=== PATIENT | male | born 1940 | race Caucasian/White ===

== ENCOUNTER 2017-12-27 13:32 | Day surgery (SDC) | payer BC ==
[2017-12-27 14:00] VITALS: BP 94/60; PULSE 122; RESP 18
[2017-12-27] MEDS ORDERED: LIDOCAINE 2% INJ 20 MG/ML SQ ONE (14:17)
--- NOTE | 2017-12-27 14:40 | IR ---
PICC LINE PLACEMENT: HISTORY: Infection requiring long-term antibiotic therapy PROCEDURE: Ultrasound and fluoroscopic guidance of PICC line placement. COMPLICATIONS: None ANESTHESIA: 1. 1% Lidocaine locally. FINDINGS/TECHNIQUE: The procedure was explained to the patient. The risks, complications, benefits and alternatives were discussed and any questions were answered. Informed consent was obtained. The patient was placed supine on the fluoroscopic table and prepped and draped in the usual sterile fas ion. Utilizing a 21 gauge needle and sonographic and fluoroscopic guidance, access in the vein was achieved and there is placement of a 0.018 guidewire. The vein is patent. A 4-F sheath was placed o pastora the guidewire. The guidewire and dilator were removed and a 4-F. PICC line was placed through th e sheath with the tip at the level of the SVC. The sheath was removed, the catheter was flushed and sutured into position. The patient was stable throughout the procedure and remained stable upon disc harge from the Department of Radiology. The vein puncture was patent under ultrasound. A thrasher scale image was obtained to document patency of the vein punctured. All elements of the maximal barrier technique were utilized. FLUOROSCOPY TIME: 0.3 minutes of fluoroscopy, one image submitted IMPRESSION: Successful PICC line placement under ultrasound and fluoroscopic guidance.
== END 2017-12-27 14:48 | disposition home or self-care (01) ==
LOC: CATHCVL 13:32
PROVIDERS: ATTEND Radiology Diagnostic Radiology
DX: M00.031 Staphylococcal arthritis, right wrist (principal); B95.8 Unspecified staphylococcus as the cause of diseases classified elsewhere; M35.9 Systemic involvement of connective tissue, unspecified; I48.91 Unspecified atrial fibrillation; Z79.01 Long term (current) use of anticoagulants; Z86.73 Personal history of transient ischemic attack (TIA), and cerebral infarction without residual deficits; Z79.899 Other long term (current) drug therapy; Z79.2 Long term (current) use of antibiotics; Z88.0 Allergy status to penicillin
CPT/HCPCS: 36569; 76937; 77001; C1751; C1769; J2001

== ENCOUNTER → 2018-01-01 | Outpatient (CLI) | payer BC ==
--- NOTE | 2018-01-02 21:16 | MR ---
EXAMINATION TYPE: MR cervical spine wo con DATE OF EXAM: 01/01/2018 COMPARISON: NONE HISTORY: myelopathy, unsteady, falls TECHNIQUE: Multiplanar, multisequence images of the cervical spine were acquired. 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 There is posterior displacement and posterior angulation of the superior odontoid from the body of C2. Fracture was previously identified CT 016. There is been some exaggeration of the cervical lordosis from the previous CT of 10/12/2015. Diffuse n arrowing through the cervical spine is present. Axial images through the lower cervical spine are severely angulated and somewhat limited. C2-C3: Minimal broad-based disc bulge is present with anterior thecal sac contact. No AP spinal canal stenosis present. Neural foramen are patent. C3-C4: Mild central bulge is present. No cord contact is evident. No AP spinal canal stenosis present . Moderate left foraminal narrowing is present. C4-C5: Disc bulge is present with anterior thecal sac flattening. Severe bilateral foraminal narrowin g is present. No AP spinal canal stenosis is present. Facet hypertrophy is present. C5-C6: Disc bulge is present into the left and right paracentral regions. This appears greater in the left paracentral region and has cord contact. Cord deformity is not clearly identified. AP spinal ca nal stenosis is not appreciated. There is narrowing of the disc height. Severe bilateral foraminal na rrowing appears to be present. C6-C7: No focal disc herniation is evident. Minimal disc bulge may be present. Foramen appear mildly narrowed. C7-T1: No evidence for degenerative disc disease. No disc bulge/herniation or protrusion. No Canal stenosis. Foramina are patent bilaterally. Cervical segments are intact. There is normal alignment. Cervical spinal cord is of normal signal. Craniovertebral junction relationships are within normal limits. IMPRESSION: 1. Old Fracture at C2 with posterior angulation and displacement of the dens is again evident and evita ears more exaggerated from the comparison CT examination of 10/12/2015. Impingement on the spinal cord is not present although there is spinal canal narrowing and narrowing of the foramen magnum. 2. Multilevel degenerative disc changes greatest at C5-6. 3. Disc bulging within the upper and mid cervical spine appears greatest at C5-6 especially in the le ft paracentral region may has some cord contact without spinal canal stenosis.
== END | disposition home or self-care (01) ==
LOC: RADMRIMAIN 12:57
PROVIDERS: ATTEND Psychiatry & Neurology Neurology
DX: M50.01 Cervical disc disorder with myelopathy, high cervical region (principal); M47.12 Other spondylosis with myelopathy, cervical region; M43.8X2 Other specified deforming dorsopathies, cervical region
CPT/HCPCS: 72141

== ENCOUNTER → 2018-05-11 | Outpatient (CLI) | payer BC ==
--- NOTE | 2018-05-11 08:12 | MR ---
EXAMINATION TYPE: MR brain wo/w con DATE OF EXAM: 05/11/2018 7:49 AM COMPARISON: NONE HISTORY: Acute confusional state CONTRAST: Patient received 7.5 mL intravenous Gadavist gadolinium contrast. Multiplanar and multispin-echo imaging of the brain was performed . Pre and post contrast enhanced i mages are obtained. The ventricles, basal cisterns and sulci overlying the cerebral convexities are mildly enlarged. There is evidence of mild periventricular white matter ischemic demyelination. Remote deep white matter insults are also noted. No acute edema is seen on diffusion weighted imaging. There is no evidence for midline shift or mass effect. Acute intracranial hemorrhage or extra-axial collection is not evident. No enhancing lesions are seen. Small focal area of enhancement within the left thalamus may reflect v enous angioma or vascular malformation. The paranasal sinuses and mastoid air cells are well-aerated. IMPRESSION: 1. Age-related atrophic and chronic small vessel ischemic change. No acute intracranial process at t his time. 2.Small focal area of enhancement within the left thalamus may reflect venous angioma or vascular mal formation.
== END | disposition home or self-care (01) ==
LOC: RADMRIMAIN 06:55
PROVIDERS: ATTEND Internal Medicine Geriatric Medicine
DX: G31.1 Senile degeneration of brain, not elsewhere classified (principal); I67.82 Cerebral ischemia
CPT/HCPCS: 70553; A9581

== ENCOUNTER 2020-03-21 11:35 | Observation (INO) | payer BC ==
[2020-03-21] MEDS ORDERED: NITROGLYCERIN OINT 1 INCH/GM PACKET TOPICAL STA (12:02)
[2020-03-21] MEDS ORDERED: ASPIRIN 81 MG PO STA (12:02)
--- NOTE | 2020-03-21 12:05 | ED ---
General Adult HPI - General Chief complaint: Chest Pain Stated complaint: Chest Pain Time Seen by Provider: 03/21/20 11:44 Source: family, RN notes reviewed, Caregiver Mode of arrival: wheelchair Limitations: altered mental status - History of Present Illness Initial comments: Patient is a pleasant 79-year-old male presenting to the emergency Department with reported chest discomfort. Patient has been clutching at his chest the past 2-3 days. Patient didn't again this morning. Patient has dementia and is a poor historian. Patient denies ever having chest discomfort. No dyspnea. No vomiting or sweating. Patient does have history of atrial fibrillation. History is mostly taken from family. Patient himself is a non-reliable historian - Related Data Home Medications Medication Instructions Recorded Confirmed Allopurinol [Zyloprim] 300 mg PO DAILY 12/24/17 03/21/20 Echinacea 400 mg PO BID 12/24/17 03/21/20 Metoprolol Tartrate 12.5 mg PO BID 12/24/17 03/21/20 Potassium 99 mg PO BID 12/24/17 03/21/20 Rivaroxaban [Xarelto] 20 mg PO W/SUPPER 12/24/17 03/21/20 Tamsulosin [Flomax] 0.8 mg PO DAILY 12/24/17 03/21/20 Vit C/E/Zn/Coppr/Lutein/Zeaxan 1 cap PO BID 01/02/18 03/21/20 [Preservision Areds 2 Softgel] Anti-Fungal Cream (Otc) 1 applic TOPICAL DAILY 03/21/20 03/21/20 Diltiazem HCl 30 mg PO BID 03/21/20 03/21/20 Donepezil [Aricept] 10 mg PO HS 03/21/20 03/21/20 Finasteride [Proscar] 5 mg PO DAILY 03/21/20 03/21/20 Magnesium Oxide [Mag-Ox] 250 mg PO DAILY 03/21/20 03/21/20 Memantine [Namenda] 10 mg PO BID 03/21/20 03/21/20 QUEtiapine FUMARATE 25 mg PO BID 03/21/20 03/21/20 Allergies Allergy/AdvReac Type Severity Reaction Status Date / Time amoxicillin Allergy Rash/Hives Verified 03/21/20 12:06 Penicillins Allergy Rash/Hives Verified 03/21/20 12:06 Review of Systems ROS Statement: Those systems with pertinent positive or pertinent negative responses have been documented in the HPI. ROS Other: All systems not noted in ROS Statement are negative. Constitutional: Denies: fever Eyes: Denies: eye pain ENT: Denies: ear pain Respiratory: Denies: cough, dyspnea Cardiovascular: Reports: as per HPI Endocrine: Denies: fatigue Gastrointestinal: Denies: vomiting Genitourinary: Denies: dysuria Musculoskeletal: Denies: back pain Skin: Denies: rash Neurological: Denies: weakness Past Medical History Past Medical History: Atrial Fibrillation, CVA/TIA, Dementia, Hypertension, Prostate Disorder, Rheumatoid Arthritis (RA) Additional Past Medical History / Comment(s): Paroxysmal atrial fibrillation, aortic insufficiency, stroke 2 many years ago, History of Any Multi-Drug Resistant Organisms: None Reported Past Surgical History: Orthopedic Surgery Additional Past Surgical History / Comment(s): carpal tunnel procedure done Apr on rt hand followed by I&D Past Psychological History: No Psychological Hx Reported Smoking Status: Former smoker Past Alcohol Use History: Occasional Past Drug Use History: None Reported - Past Family History Father Additional Family Medical History / Comment(s): Father is and he had some type of heart trouble but patient does not know details. Mother Additional Family Medical History / Comment(s): Mother is with history of TIAs and diabetes. Brother(s) Additional Family Medical History / Comment(s): Patient has 2 brothers and 2 sisters. One brother from cancer and patient does not know the type. Patient has 2 sons with no major medical problems. General Exam Limitations: altered mental status General appearance: alert, in no apparent distress Head exam: Present: normocephalic Eye exam: Present: normal appearance Neck exam: Present: normal inspection Respiratory exam: Present: normal lung sounds bilaterally. Absent: chest wall tenderness Cardiovascular Exam: Present: regular rate, normal rhythm Expanded Peripheral pulses: 2+: Radial (R), Radial (L), Posterior Tibialis (R), Posterior Tibialis (L) GI/Abdominal exam: Present: soft. Absent: tenderness Extremities exam: Present: normal inspection. Absent: pedal edema, calf tenderness Neurological exam: Present: alert Psychiatric exam: Present: flat affect Skin exam: Present: normal color Course Vital Signs 03/21/20 03/21/20 03/21/20 11:37 12:00 12:30 Temperature 97.9 F Pulse Rate 69 66 62 Respiratory 18 21 19 Rate Blood Pressure 116/69 130/71 137/71 O2 Sat by Pulse 93 L 95 95 Oximetry 03/21/20 13:00 Temperature Pulse Rate 60 Respiratory 17 Rate Blood Pressure 137/71 O2 Sat by Pulse 93 L Oximetry EKG Findings - EKG Comments: EKG Findings:: Normal sinus rhythm 68. IA 198. QRS 96. QT 426. QTc 42. Normal axis. Normal QRS. No acute ST change. Medical Decision Making - Medical Decision Making Patient reevaluated and resting comfortably in bed. Patient and family updated on results. Case was discussed with Dr. Cartwright who did feel patient will need further evaluation including stress test and echo. He recommended letting family decided they wanted to this in the hospital or as an outpatient. states it is difficult to get him to appointments and would prefer to do this in the hospital. Admission orders written. - Lab Data Result diagrams: 03/21/20 12:07 03/21/20 12:07 Lab Results 03/21/20 03/21/20 03/21/20 Range/Units 12:07 12:07 12:07 WBC 8.0 (3.8-10.6) k/uL RBC 4.79 (4.30-5.90) m/uL Hgb 14.7 (13.0-17.5) gm/dL Hct 45.8 (39.0-53.0) % MCV 95.7 (80.0-100.0) fL MCH 30.7 (25.0-35.0) pg MCHC 32.1 (31.0-37.0) g/dL RDW 17.4 H (11.5-15.5) % Plt Count 57 L (150-450) k/uL Neutrophils % (Manual) 79 % Lymphocytes % (Manual) 7 % Monocytes % (Manual) 11 % Eosinophils % (Manual) 2 % Basophils % (Manual) 1 % Neutrophils # (Manual) 6.32 (1.3-7.7) k/uL Lymphocytes # (Manual) 0.56 L (1.0-4.8) k/uL Monocytes # (Manual) 0.88 (0-1.0) k/uL Eosinophils # (Manual) 0.16 (0-0.7) k/uL Basophils # (Manual) 0.08 (0-0.2) k/uL Nucleated RBCs 0 (0-0) /100 WBC Manual Slide Review Performed Poikilocytosis (manual Present Anisocytosis Slight PT 11.3 (9.0-12.0) sec INR 1.1 (<1.2) APTT 32.6 H (22.0-30.0) sec Sodium 136 L (137-145) mmol/L Potassium 4.4 (3.5-5.1) mmol/L Chloride 103 (98-107) mmol/L Carbon Dioxide 25 (22-30) mmol/L Anion Gap 8 mmol/L BUN 26 H (9-20) mg/dL Creatinine 1.28 H (0.66-1.25) mg/dL Est GFR (CKD-EPI)AfAm 61 (>60 ml/min/1.73 sqM) Est GFR (CKD-EPI)NonAf 53 (>60 ml/min/1.73 sqM) Glucose 193 H (74-99) mg/dL Calcium 8.8 (8.4-10.2) mg/dL Magnesium 1.9 (1.6-2.3) mg/dL Total Bilirubin 2.6 H (0.2-1.3) mg/dL AST 37 (17-59) U/L ALT 26 (4-49) U/L Alkaline Phosphatase 88 (38-126) U/L Troponin I (0.000-0.034) ng/mL Total Protein 7.6 (6.3-8.2) g/dL Albumin 4.0 (3.5-5.0) g/dL 03/21/20 Range/Units 12:07 WBC (3.8-10.6) k/uL RBC (4.30-5.90) m/uL Hgb (13.0-17.5) gm/dL Hct (39.0-53.0) % MCV (80.0-100.0) fL MCH (25.0-35.0) pg MCHC (31.0-37.0) g/dL RDW (11.5-15.5) % Plt Count (150-450) k/uL Neutrophils % (Manual) % Lymphocytes % (Manual) % Monocytes % (Manual) % Eosinophils % (Manual) % Basophils % (Manual) % Neutrophils # (Manual) (1.3-7.7) k/uL Lymphocytes # (Manual) (1.0-4.8) k/uL Monocytes # (Manual) (0-1.0) k/uL Eosinophils # (Manual) (0-0.7) k/uL Basophils # (Manual) (0-0.2) k/uL Nucleated RBCs (0-0) /100 WBC Manual Slide Review Poikilocytosis (manual Anisocytosis PT (9.0-12.0) sec INR (<1.2) APTT (22.0-30.0) sec Sodium (137-145) mmol/L Potassium (3.5-5.1) mmol/L Chloride (98-107) mmol/L Carbon Dioxide (22-30) mmol/L Anion Gap mmol/L BUN (9-20) mg/dL Creatinine (0.66-1.25) mg/dL Est GFR (CKD-EPI)AfAm (>60 ml/min/1.73 sqM) Est GFR (CKD-EPI)NonAf (>60 ml/min/1.73 sqM) Glucose (74-99) mg/dL Calcium (8.4-10.2) mg/dL Magnesium (1.6-2.3) mg/dL Total Bilirubin (0.2-1.3) mg/dL AST (17-59) U/L ALT (4-49) U/L Alkaline Phosphatase (38-126) U/L Troponin I <0.012 (0.000-0.034) ng/mL Total Protein (6.3-8.2) g/dL Albumin (3.5-5.0) g/dL - Radiology Data Radiology results: image reviewed (Chest x-ray shows COPD with bibasilar infiltrates/small effusion. Correlate for interstitial pneumonitis versus mild venous congestion.) Disposition Clinical Impression: Chest pain Disposition: ADMITTED IP TO THIS HOSP Is patient prescribed a controlled substance at d/c from ED?: No Referrals: Kevin Cartwright MD [Primary Care Provider] - 1-2 days Decision Time: 13:56
--- NOTE | 2020-03-21 12:22 | XR ---
EXAMINATION TYPE: XR chest 2V DATE OF EXAM: 03/21/2020 COMPARISON: 01/01/2018 TECHNIQUE: PA and lateral views submitted. HISTORY: Chest pain FINDINGS: Heart is enlarged bilateral consolidation and pleural effusion. There is a interstitial prominence. N o pneumothorax. Arthropathy of the shoulders. Underlying COPD suspected. Degenerative change of the s pine. IMPRESSION: 1. COPD with bibasilar infiltrate and small effusion. Correlate for interstitial pneumonitis or mild venous congestion.
[2020-03-21 12:30] LABS: Anisocytosis Slight; HCT 45.8 % (39.0-53.0); HGB 14.7 gm/dL (13.0-17.5); MCH 30.7 pg (25.0-35.0); MCHC 32.1 g/dL (31.0-37.0); MCV 95.7 fL (80.0-100.0); RBC 4.79 m/uL (4.30-5.90); RDW 17.4 % (11.5-15.5)
[2020-03-21 12:36] LABS: INR 1.1 (<1.2); Partial Thromboplastin Time 32.6 sec (22.0-30.0); Prothrombin Time 11.3 sec (9.0-12.0)
[2020-03-21 12:40] LABS: Calcium 8.8 mg/dL (8.4-10.2); Magnesium 1.9 mg/dL (1.6-2.3); Potassium 4.4 mmol/L (3.5-5.1); Total Bilirubin 2.6 mg/dL (0.2-1.3); Total Protein 7.6 g/dL (6.3-8.2)
[2020-03-21 12:54] LABS: Basophils # (M) 0.08 k/uL (0-0.2); Eosinophils # (M) 0.16 k/uL (0-0.7); Lymphocytes # (M) 0.56 k/uL (1.0-4.8); Monocytes # (M) 0.88 k/uL (0-1.0); Neutrophils # (M) 6.32 k/uL (1.3-7.7); Neutrophils % (M) 79 %; Nucleated Red Blood Cells 0 /100 WBC (0-0); Poikilocytosis (M) Present; Total Cells Counted 100
[2020-03-21 12:55] LABS: Platelet Count 57 k/uL (150-450)
[2020-03-21] MEDS ORDERED: NITROGLYCERIN SL TABS 0.4 MG TAB SUBLINGUAL PRN (13:56)
[2020-03-21] MEDS ORDERED: RIVAROXABAN 20 MG TAB PO SCH (17:30)
[2020-03-21] MEDS ORDERED: NON FORMULARY DRUG (Potassium [Potassium] 99 MG) PO SCH (21:00)
[2020-03-21] MEDS ORDERED: DONEPEZIL 10 MG TAB PO SCH (21:00)
--- NOTE | 2020-03-21 23:11 | P.HPIM ---
History of Present Illness H&P Date: 03/21/20 Chief Complaint: Chest pain and angina, advanced dementia, A. fib with RVR, history of CVA 79-year-old male one of my office patient with known for many years with past medical history of A. 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 Patient presented to demurs department with his who is doing most of the talk with significant chest pain midsternal with cold sweat and nausea and slight palpitation with worsening symptom with exertion, patient is on anticoagulation did not require any anticoagulation at the time, his testing showed significant thrombocytopenia platelet count of 57 only blood sugars mildly elevated patient in stage II chronic kidney disease, first troponin was negative his BNP was slightly bit low, EKG showed normal sinus rhythm with sligh t change in anterior leads. Patient will be hospitalized and consult cardiology continue troponin 3 echocardiogram and probably stress test will be done at this point based on the finding in the next 24 hours we'll decide on the best management. Patient is seen cardiology regular basis. Review of Systems CONSTITUTIONAL: Well-developed no acute respiratory distress. EYES: No icterus sclerae, no conjunctivitis. EARS, NOSE, MOUTH, THROAT, and FACE: No sore throat, lymphadenopathy, carotid bruits or deformity. RESPIRATORY: Mild shortness of breath no cough wheezes. CARDIOVASCULAR: Positive PND orthopnea palpitations and angina. GASTROINTESTINAL: No Abd pain, Nausea or vomiting, no Diarrhea or constipation, No GI Bleed, no distention or masses. GENITOURINARY: Negative for Hematuria or UTI, no kidney stones. INTEGUMENT/BREAST: Negative for any muscular injury with mild osteoarthritis.. HEMATOLOGIC/LYMPHATIC thrombocytopenia with multiple bruises and ecchymosis site. MUSCULOSKELTAL: Negative for Myalgia or arthralgia. NEURLOGICAL: No LOC, Sz or syncope, blurred vision dizziness or abnormality.. BEHAVIORAL/PSYCH: Negative. ENDOCRINE: Negative. Past Medical History Past Medical History: Atrial Fibrillation, CVA/TIA, Dementia, GERD/Reflux, Hypertension, Memory Impairment, Prostate Disorder, Renal Disease, Rheumatoid Arthritis (RA) Additional Past Medical History / Comment(s): Paroxysmal atrial fibrillation, aortic insufficiency, stroke 2 many years ago with no residual, fall 3 yrs ago with 3 cervical fractures, cervical pain, gout bilateral knees, CKD stage III, diverticular disease History of Any Multi-Drug Resistant Organisms: None Reported Past Surgical History: Joint Replacement, Orthopedic Surgery Additional Past Surgical History / Comment(s): R carpal tunnel procedure followed by I&D, total R knee arthroplasty, bilateral shoulder rotator cuff repairs, vasectomy, picc line, colonoscopy Past Anesthesia/Blood Transfusion Reactions: No Reported Reaction Smoking Status: Former smoker - Past Family History Father Additional Family Medical History / Comment(s): Father is and he had some type of heart trouble Mother Additional Family Medical History / Comment(s): Mother is with history of TIAs and diabetes. Brother(s) Additional Family Medical History / Comment(s): Patient has 2 brothers and 2 sisters. One brother from cancer and patient does not know the type. Patient has 2 sons with no major medical problems. Medications and Allergies Home Medications Medication Instructions Recorded Confirmed Type Allopurinol [Zyloprim] 300 mg PO DAILY 12/24/17 03/21/20 History Echinacea 400 mg PO BID 12/24/17 03/21/20 History Metoprolol Tartrate 12.5 mg PO BID 12/24/17 03/21/20 History Potassium 99 mg PO BID 12/24/17 03/21/20 History Rivaroxaban [Xarelto] 20 mg PO W/SUPPER 12/24/17 03/21/20 History Tamsulosin [Flomax] 0.8 mg PO DAILY 12/24/17 03/21/20 History Vit C/E/Zn/Coppr/Lutein/Zeaxan 1 cap PO BID 01/02/18 03/21/20 History [Preservision Areds 2 Softgel] Anti-Fungal Cream (Otc) 1 applic TOPICAL DAILY 03/21/20 03/21/20 History Diltiazem HCl 30 mg PO BID 03/21/20 03/21/20 History Donepezil [Aricept] 10 mg PO HS 03/21/20 03/21/20 History Finasteride [Proscar] 5 mg PO DAILY 03/21/20 03/21/20 History Magnesium Oxide [Mag-Ox] 250 mg PO DAILY 03/21/20 03/21/20 History Memantine [Namenda] 10 mg PO BID 03/21/20 03/21/20 History QUEtiapine FUMARATE 25 mg PO BID 03/21/20 03/21/20 History Allergies Allergy/AdvReac Type Severity Reaction Status Date / Time amoxicillin Allergy Rash/Hives Verified 03/21/20 12:06 Penicillins Allergy Rash/Hives Verified 03/21/20 12:06 Physical Exam Vitals: Vital Signs Temp Pulse Resp BP Pulse Ox 03/21/20 21:00 58 L 16 118/72 03/21/20 20:00 16 115/81 93 L 03/21/20 19:00 16 115/81 03/21/20 18:30 56 L 16 115/81 93 L 03/21/20 18:00 19 122/64 93 L 03/21/20 17:30 22 122/64 93 L 03/21/20 17:00 56 L 18 115/64 93 L 03/21/20 16:30 56 L 115/64 93 L 03/21/20 16:00 56 L 10 L 120/69 93 L 03/21/20 15:30 59 L 17 120/69 94 L 03/21/20 15:00 60 15 117/69 93 L 03/21/20 14:30 57 L 15 117/69 94 L 03/21/20 14:00 58 L 15 125/61 94 L 03/21/20 13:30 58 L 15 125/61 94 L 03/21/20 13:00 60 17 137/71 93 L 03/21/20 12:30 62 19 137/71 95 03/21/20 12:00 66 21 130/71 95 03/21/20 11:37 97.9 F 69 18 116/69 93 L Intake and Output 03/21/20 03/21/20 03/21/20 06:59 14:59 22:59 Other: Weight 88.451 kg 88.451 kg General Appearance: Alert, cooperative, no distress, appears stated age. Neck HEENT: Supple, no lymphadenopathy, no thyroid enlargement, no carotid bruits. Lungs: Decreased breath some bilateral with fine rhonchi. Chest Wall: Decrease expansion with deep inspiration no tenderness and no deformity was found on exam, no costochondral pain or discomfort. Heart: Regular rate and rhythm, S1, S2, positive S3, positive JVD with systolic murmur. Back: Symmetric, no curvature, ROM normal, no CVA tenderness. Abdomen: Soft, non-tender, bowel sounds active all four quadrants, no masses, no organomegaly. Extremities: Extremities normal, atraumatic, no cyanosis or edema. Multiple bruises and ecchymosis. Pulses: 2+ and symmetric. Skin: Skin color, texture, tugor normal, no rashes or lesions. Neurologic: Alert oriented with slight confusion, cranial nerves II through XII intact, no motor deficit, positive abnormal bouncing gait. Results CBC & Chem 7: 03/21/20 12:07 03/21/20 12:07 Labs: Abnormal Lab Results - Last 24 Hours (Table) 03/21/20 03/21/20 03/21/20 Range/Units 12:07 12: 12: RDW 17.4 H (11.5-15.5) % Plt Count 57 L (150-450) k/uL Lymphocytes # (Manual) 0.56 L (1.0-4.8) k/uL APTT 32.6 H (22.0-30.0) sec Sodium 136 L (137-145) mmol/L BUN 26 H (9-20) mg/dL Creatinine 1.28 H (0.66-1.25) mg/dL Glucose 193 H (74-99) mg/dL Total Bilirubin 2.6 H (0.2-1.3) mg/dL Thrombosis Risk Factor Assmnt - Choose All That Apply Any of the Below Risk Factors Present?: Yes Each Factor Represents 1 point: Obesity (BMI >25) Other Risk Factors: Yes Each Risk Factor Represents 3 Points: Age 75 years or older Other congenital or acquired thrombophilia - If yes, enter type in comment: No Thrombosis Risk Factor Assessment Total Risk Factor Score: 4 Thrombosis Risk Factor Assessment Level: Moderate Risk Assessment and Plan Assessment: 1 atypical chest pain: With very high risk factor for coronary artery disease, patient be hospitalized, CK with troponin times daily done, consult cardiology, echocardiogram and patient be going for possibly stress test. 2 atrophy fibrillation: Pulse rates under control currently remain on diltiazem 50 mg twice a day along with metoprolol titrate to 0.5 mg twice a day. 3 dementia: Much worse than before will continue Donepazile 10 mg at bedtime along Namenda and Seroquel. 4 BPH: Still watching for any urinary retention remain on finasteride 5 mg a day and Flomax 0.8 mg daily. 5 anticoagulation: Remain on Xarelto 20 mg a day with good result so far. 6 GI prophylaxis: Patient be on pantoprazole. 7 chronic kidney disease: With slightly red worse this point no need for dialysis no need for neuro consult. DVT prophylaxis: Patient will be continue on anticoagulation. CODE STATUS: Full code. Admit patient to the hospital to inpatient service for more than 2 nights.
[2020-03-21] MEDS: NITROGLYCERIN OINT 1 INCH/GM PACKET TOPICAL SCH (23:16)
[2020-03-21] MEDS: MEMANTINE 10 MG TAB PO SCH (23:43)
[2020-03-21] MEDS: DILTIAZEM ORAL 30 MG TAB PO SCH (23:43)
[2020-03-21] MEDS: METOPROLOL TARTRATE 12.5 MG TAB PO SCH (23:44)
[2020-03-21] MEDS: VIT A,C & E-LUTEIN-MINERALS 1 EACH TAB PO SCH (23:44)
[2020-03-21] MEDS: QUEtiapine 25 MG TAB PO SCH (23:44)
[2020-03-22] MEDS: NITROGLYCERIN OINT 1 INCH/GM PACKET TOPICAL SCH ×3 (02:30→11:33)
[2020-03-22 04:14] LABS: Cholesterol 97 mg/dL (<200); HDL Cholesterol 28 mg/dL (40-60); LDL Cholesterol,Calculated 56 mg/dL (0-99); Triglycerides 66 mg/dL (<150)
--- NOTE | 2020-03-22 07:45 | P.CRDCN ---
History of Present Illness Consult date: 03/22/20 Chief complaint: Chest pain History of present illness: This is a very pleasant 79-year-old gentleman who I see in the office on regular basis with a past medical history significant for paroxysmal atrial fibrillation as well as aortic valve disease was brought by his family to the hospital with a chest discomfort. The patient does have underlying dementia which has gotten worse lately. He is very poor historian. The story was taken from the chart as well as from the nose taking care of the patient. Apparently he was experiencing chest discomfort and was brought by his . Currently the patient is chest pain-free. The chest discomfort was not associated with any sweating, dizziness, heart racing, orsyncope. The patient was seen this morning and he seems to be very comfortable. Workup was performed including an EKG which showed sinus rhythm without any significant ST or T-wave abnormalities. The blood work including troponin was checked and came in to be unremarkable. The rest of his blood work also came in to be unremarkable with a chest x-ray did not show any acute abnormalities. No documented history of coronary artery disease or congestive heart failure but he does have paroxysmal atrial fibrillation. Past Medical History Past Medical History: Atrial Fibrillation, CVA/TIA, Dementia, GERD/Reflux, Hypertension, Memory Impairment, Prostate Disorder, Renal Disease, Rheumatoid Arthritis (RA) Additional Past Medical History / Comment(s): Paroxysmal atrial fibrillation, aortic insufficiency, stroke 2 many years ago with no residual, fall 3 yrs ago with 3 cervical fractures, cervical pain, gout bilateral knees, CKD stage III, diverticular disease History of Any Multi-Drug Resistant Organisms: None Reported Past Surgical History: Joint Replacement, Orthopedic Surgery Additional Past Surgical History / Comment(s): R carpal tunnel procedure followed by I&D, total R knee arthroplasty, bilateral shoulder rotator cuff repairs, vasectomy, picc line, colonoscopy Past Anesthesia/Blood Transfusion Reactions: No Reported Reaction Smoking Status: Unknown if ever smoked - Past Family History Father Additional Family Medical History / Comment(s): Father is and he had some type of heart trouble Mother Additional Family Medical History / Comment(s): Mother is with history of TIAs and diabetes. Brother(s) Additional Family Medical History / Comment(s): Patient has 2 brothers and 2 sis ters. One brother from cancer and patient does not know the type. Patient has 2 sons with no major medical problems. Medications and Allergies Home Medications Medication Instructions Recorded Confirmed Type Allopurinol [Zyloprim] 300 mg PO DAILY 12/24/17 03/21/20 History Echinacea 400 mg PO BID 12/24/17 03/21/20 History Metoprolol Tartrate 12.5 mg PO BID 12/24/17 03/21/20 History Potassium 99 mg PO BID 12/24/17 03/21/20 History Rivaroxaban [Xarelto] 20 mg PO W/SUPPER 12/24/17 03/21/20 History Tamsulosin [Flomax] 0.8 mg PO DAILY 12/24/17 03/21/20 History Vit C/E/Zn/Coppr/Lutein/Zeaxan 1 cap PO BID 01/02/18 03/21/20 History [Preservision Areds 2 Softgel] Anti-Fungal Cream (Otc) 1 applic TOPICAL DAILY 03/21/20 03/21/20 History Diltiazem HCl 30 mg PO BID 03/21/20 03/21/20 History Donepezil [Aricept] 10 mg PO HS 03/21/20 03/21/20 History Finasteride [Proscar] 5 mg PO DAILY 03/21/20 03/21/20 History Magnesium Oxide [Mag-Ox] 250 mg PO DAILY 03/21/20 03/21/20 History Memantine [Namenda] 10 mg PO BID 03/21/20 03/21/20 History QUEtiapine FUMARATE 25 mg PO BID 03/21/20 03/21/20 History Allergies Allergy/AdvReac Type Severity Reaction Status Date / Time amoxicillin Allergy Rash/Hives Verified 03/21/20 12:06 Penicillins Allergy Rash/Hives Verified 03/21/20 12:06 Physical Exam Vitals: Vital Signs Temp Pulse Pulse Resp BP BP Pulse Ox 03/22/20 06:29 97.8 F 61 16 119/64 93 L 03/22/20 06:00 97.6 F 64 18 123/69 93 L 03/22/20 02:00 62 16 143/87 94 L 03/21/20 21:00 58 L 16 118/72 03/21/20 20:00 16 115/81 93 L 03/21/20 19:00 16 115/81 03/21/20 18:30 56 L 16 115/81 93 L 03/21/20 18:00 19 122/64 93 L 03/21/20 17:30 22 122/64 93 L 03/21/20 17:00 56 L 18 115/64 93 L 03/21/20 16:30 56 L 115/64 93 L 03/21/20 16:00 56 L 10 L 120/69 93 L 03/21/20 15:30 59 L 17 120/69 94 L 03/21/20 15:00 60 15 117/69 93 L 03/21/20 14:30 57 L 15 117/69 94 L 03/21/20 14:00 58 L 15 125/61 94 L 03/21/20 13:30 58 L 15 125/61 94 L 03/21/20 13:00 60 17 137/71 93 L 03/21/20 12:30 62 19 137/71 95 03/21/20 12:00 66 21 130/71 95 03/21/20 11:37 97.9 F 69 18 116/69 93 L Intake and Output 03/21/20 03/22/20 03/22/20 22:59 06:59 14:59 Other: Weight 88.451 kg 88.451 kg - Constitutional General appearance: no acute distress - Respiratory Respiratory: bilateral: CTA - Cardiovascular Rhythm: regular Heart sounds: normal: S1, S2 Results 03/21/20 12:07 03/21/20 12:07 Cardiac Enzymes 03/21/20 03/21/20 03/21/20 Range/Units 12:07 12:07 15:33 AST 37 (17-59) U/L Troponin I <0.012 <0.012 (0.000-0.034) ng/mL 03/21/20 Range/Units 18:06 AST (17-59) U/L Troponin I <0.012 (0.000-0.034) ng/mL Coagulation 03/21/20 Range/Units 12:07 PT 11.3 (9.0-12.0) sec APTT 32.6 H (22.0-30.0) sec Lipids 03/21/20 Range/Units 12:07 Triglycerides 66 (<150) mg/dL Cholesterol 97 (<200) mg/dL HDL Cholesterol 28 L (40-60) mg/dL CBC 03/21/20 Range/Units 12:07 WBC 8.0 (3.8-10.6) k/uL RBC 4.79 (4.30-5.90) m/uL Hgb 14.7 (13.0-17.5) gm/dL Hct 45.8 (39.0-53.0) % Plt Count 57 L (150-450) k/uL Comprehensive Metabolic Panel 03/21/20 Range/Units 12:07 Sodium 136 L (137-145) mmol/L Potassium 4.4 (3.5-5.1) mmol/L Chloride 103 (98-107) mmol/L Carbon Dioxide 25 (22-30) mmol/L BUN 26 H (9-20) mg/dL Creatinine 1.28 H (0.66-1.25) mg/dL Glucose 193 H (74-99) mg/dL Calcium 8.8 (8.4-10.2) mg/dL AST 37 (17-59) U/L ALT 26 (4-49) U/L Alkaline Phosphatase 88 (38-126) U/L Total Protein 7.6 (6.3-8.2) g/dL Albumin 4.0 (3.5-5.0) g/dL Current Medications Generic Name Dose Route Start Last Admin Trade Name Freq PRN Reason Stop Dose Admin Allopurinol 300 mg 03/22/20 09:00 Zyloprim PO DAILY [facility] Aspirin 325 mg 03/22/20 09:00 Aspirin PO DAILY SMI[facility] Diltiazem HCl 30 mg 03/21/20 21:00 03/21/20 23:43 Cardizem Oral PO 30 mg BID S[facility] Administration Donepezil HCl 10 mg 03/21/20 21:00 03/21/20 23:43 Aricept PO 10 mg HS [facility] Administration Finasteride 5 mg 03/22/20 09:00 Proscar PO DAILY [facility] Magnesium Oxide 400 mg 03/22/20 09:00 Mag-Ox PO DAILY [facility] Memantine 10 mg 03/21/20 21:00 03/21/20 23:43 Namenda PO 10 mg BID [facility] Administration Metoprolol Tartrate 12.5 mg 03/21/20 21:00 03/21/20 23:44 Lopressor PO 12.5 mg BID [facility] Administration Multivitamins/Minerals 1 each 03/21/20 21:00 03/21/20 23:44 Ivite PO 1 each BID SMI[facility] Administration Nitroglycerin 0.4 mg 03/21/20 13:56 Nitrostat SUBLINGUAL Q5M PRN Chest Pain Nitroglycerin 1 inch 03/21/20 18:00 03/22/20 06:40 Nitro-Bid Oint TOPICAL Not Given Q6HR [facility] Quetiapine Fumarate 25 mg 03/21/20 21:00 03/21/20 23:44 Seroquel PO 25 mg BID [facility] Administration Rivaroxaban 20 mg 03/21/20 17:30 03/21/20 23:43 Xarelto PO 20 mg W/SUPPER [facility] Administration Sodium Chloride 10 ml 03/21/20 21:00 03/21/20 23:44 Saline Flush IV 10 ml BID [facility] Administration Tamsulosin HCl 0.8 mg 03/22/20 09:00 Flomax PO DAILY [facility] Intake and Output 03/21/20 03/22/20 03/22/20 22:59 06:59 14:59 Other: Weight 88.451 kg 88.451 kg 03/21/20 12:07 03/21/20 12:07 Assessment and Plan Assessment: Assessment Atypical chest discomfort Paroxysmal atrial fibrillation Aortic valve disease Plan I would advise conservative medical approach giving his age as well as the advanced dementia I would add oral nitrates to the current medical regimen Obtain an echocardiogram was Doppler Follow-up with the patient
[2020-03-22 08:11] VITALS: RESP 12
[2020-03-22] MEDS: MEMANTINE 10 MG TAB PO SCH (08:12)
[2020-03-22] MEDS: VIT A,C & E-LUTEIN-MINERALS 1 EACH TAB PO SCH (08:13)
[2020-03-22] MEDS: DILTIAZEM ORAL 30 MG TAB PO SCH (08:13)
[2020-03-22] MEDS: METOPROLOL TARTRATE 12.5 MG TAB PO SCH (08:13)
[2020-03-22] MEDS: QUEtiapine 25 MG TAB PO SCH (08:13)
[2020-03-22] MEDS ORDERED: MAGNESIUM OXIDE 400 MG TAB PO SCH (09:00)
[2020-03-22] MEDS ORDERED: TAMSULOSIN 0.4 MG CAP.ER.24H PO SCH (09:00)
[2020-03-22] MEDS ORDERED: allopurinoL 300 MG TAB PO SCH (09:00)
[2020-03-22] MEDS ORDERED: FINASTERIDE 5 MG TAB PO SCH (09:00)
[2020-03-22] MEDS ORDERED: ISOSORBIDE MONONITRATE ER 30 MG TAB.ER.24H PO SCH (09:00)
[2020-03-22] MEDS ORDERED: ASPIRIN 325 MG TAB PO SCH (09:00)
[2020-03-22 11:33] VITALS: BP 98/54; PULSE 66; TEMP 98.2
--- NOTE | 2020-03-22 12:04 | P.DS ---
Providers Date of admission: 03/21/20 13:56 Expected date of discharge: 03/22/20 Attending physician: Kevin Cartwright Consults: 03/21/20 13:56 Consult Physician Urgent Consulting Provider: Cody Patten Consult Reason/Comments: cp, possible stress test Do you want consulting provider notified?: Yes Primary care physician: [facility] Course: 79-year-old male one of my office patient with known for many years with past medical history of A. 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 Patient presented to demurs department with his who is doing most of the talk with significant chest pain midsternal with cold sweat and nausea and slight palpitation with worsening symptom with exertion, patient is on anticoagulation did not require any anticoagulation at the time, his testing showed significant thrombocytopenia platelet count of 57 only blood sugars mildly elevated patient in stage II chronic kidney disease, first troponin was negative his BNP was slightly bit low, EKG showed normal sinus rhythm with slight change in anterior leads. Patient will be hospitalized and consult cardiology continue troponin 3 echocardiogram and probably stress test will be done at this point based on the finding in the next 24 hours we'll decide on the best management. Patient is seen cardiology regular basis. 03/22: Patient has been seen by cardiology with plan for conservative management. Imdur and aspirin have been started. Echocardiogram reveals EF 55-60% with mild concentric left ventricular hypertrophy, trace aortic regurgitation, mild mitral regurgitation, mild tricuspid regurgitation. Patient has been afebrile, heart rate 63, blood pressure 115/64, pulse ox 93% on room air. Troponins have been negative on 3 draws. Patient will be discharged home today in stable condition. Discharge diagnoses: 1 atypical chest pain 2 atrial fibrillation, paroxysmal 3 dementia 4 BPH 5 anticoagulation 6 COVID-19 infection not present 7 chronic kidney disease stage III Discharge plan: Home Impression and plan of care have been directed as dictated by the signing physician. Paola Escalante nurse practitioner acting as scribe for signing physician. Patient Condition at Discharge: Good Plan - Discharge Summary Discharge Rx Participant: No New Discharge Prescriptions: New Aspirin [Adult Low Dose Aspirin EC] 81 mg PO DAILY #30 tablet. Isosorbide Mononitrate ER [Imdur] 30 mg PO DAILY #30 tab.er.24h Continue Tamsulosin [Flomax] 0.8 mg PO DAILY Rivaroxaban [Xarelto] 20 mg PO W/SUPPER Potassium 99 mg PO BID Metoprolol Tartrate 12.5 mg PO BID Echinacea 400 mg PO BID Allopurinol [Zyloprim] 300 mg PO DAILY Vit C/E/Zn/Coppr/Lutein/Zeaxan [Preservision Areds 2 Softgel] 1 cap PO BID Diltiazem HCl 30 mg PO BID Donepezil [Aricept] 10 mg PO HS Finasteride [Proscar] 5 mg PO DAILY Magnesium Oxide [Mag-Ox] 250 mg PO DAILY Memantine [Namenda] 10 mg PO BID QUEtiapine FUMARATE 25 mg PO BID Anti-Fungal Cream (Otc) 1 applic TOPICAL DAILY Discharge Medication List Allopurinol [Zyloprim] 300 mg PO DAILY 12/24/17 [History] Echinacea 400 mg PO BID 12/24/17 [History] Metoprolol Tartrate 12.5 mg PO BID 12/24/17 [History] Potassium 99 mg PO BID 12/24/17 [History] Rivaroxaban [Xarelto] 20 mg PO W/SUPPER 12/24/17 [History] Tamsulosin [Flomax] 0.8 mg PO DAILY 12/24/17 [History] Vit C/E/Zn/Coppr/Lutein/Zeaxan [Preservision Areds 2 Softgel] 1 cap PO BID 01/02/18 [History] Anti-Fungal Cream (Otc) 1 applic TOPICAL DAILY 03/21/20 [History] Diltiazem HCl 30 mg PO BID 03/21/20 [History] Donepezil [Aricept] 10 mg PO HS 03/21/20 [History] Finasteride [Proscar] 5 mg PO DAILY 03/21/20 [History] Magnesium Oxide [Mag-Ox] 250 mg PO DAILY 03/21/20 [History] Memantine [Namenda] 10 mg PO BID 03/21/20 [History] QUEtiapine FUMARATE 25 mg PO BID 03/21/20 [History] Aspirin [Adult Low Dose Aspirin EC] 81 mg PO DAILY #30 tablet. 03/22/20 [Rx] Isosorbide Mononitrate ER [Imdur] 30 mg PO DAILY #30 tab.er.24h 03/22/20 [Rx] Follow up Appointment(s)/Referral(s): Cody Patten MD [STAFF PHYSICIAN] - 04/11/20 4:30 pm Kevin Cartwright MD [Primary Care Provider] - 1 Week Patient Instructions/Handouts: Chest Pain (DC) Discharge Disposition: HOME SELF-CARE
--- NOTE | 2020-03-22 13:38 | ECHOF ---
Referral Reason:cp MEASUREMENTS -------- HEIGHT: 177.8 cm WEIGHT: 88.5 kg BP: IVSd: 1.0 cm (0.6 - 1.1) LVIDd: 4.3 cm (3.9 - 5.3) LVPWd: 1.2 cm (0.6 - 1.1) IVSs: 1.4 cm LVIDs: 2.3 cm LVPWs: 1.8 cm Ao Diam: 3.1 cm (2.0 - 3.7) AV Cusp: 1.4 cm (1.5 - 2.6) LA Diam: 3.3 cm (2.7 - 3.8) MV EXCURSION: 15.271 mm (> 18.000) MV EF SLOPE: 53 mm/s (70 - 150) EPSS: 1.0 cm MV E Omses: 0.85 m/s MV DecT: 222 ms MV A Moses: 0.74 m/s MV E/A Ratio: 1.14 AR PHT: 528 ms RAP: 5.00 mmHg RVSP: 31.23 mmHg FINDINGS -------- Sinus rhythm. This was a technically difficult study with suboptimal views. The left ventricular size is normal. There is mild concentric left ventricular hypertrophy. Overa ll left ventricular systolic function is normal with, an EF between 55 - 60 %. The right ventricle is normal in size. The left atrial size is normal. The right atrial size is normal. xx ml of Lumason was utilized for enhancement of images. Aortic valve is trileaflet and is mildly thickened. Trace amount of aortic regurgitation. The mitral valve is normal. The mitral valve leaflets are mildly thickened. Mild mitral regurgita tion is present. The tricuspid valve appears structurally normal. Mild tricuspid regurgitation present. Right vent ricular systolic pressure is normal at < 35 mmHg. There is no pulmonic regurgitation present. The aortic root size is normal. IVC Not well visulized. There is no pericardial effusion. CONCLUSIONS -------- 1. Sinus rhythm. 2. This was a technically difficult study with suboptimal views. 3. The left ventricular size is normal. 4. There is mild concentric left ventricular hypertrophy. 5. Overall left ventricular systolic function is normal with, an EF between 55 - 60 %. 6. The right ventricle is normal in size. 7. The left atrial size is normal. 8. The right atrial size is normal. 9. xx ml of Lumason was utilized for enhancement of images. 10. Aortic valve is trileaflet and is mildly thickened. 11. Trace amount of aortic regurgitation. 12. The mitral valve is normal. 13. The mitral valve leaflets are mildly thickened. 14. Mild mitral regurgitation is present. 15. The tricuspid valve appears structurally normal. 16. Mild tricuspid regurgitation present. 17. Right ventricular systolic pressure is normal at < 35 mmHg. 18. There is no pulmonic regurgitation present. 19. The aortic root size is normal. 20. IVC Not well visulized. 21. There is no pericardial effusion. [employer] PROFESSOR: Yisel Pace RDCS
--- NOTE | 2020-03-26 14:27 | CDI ---
Dear Paola Escalante, Please refer to the dictated Discharge Summary discharge diagnosis listed. Please specify Covid-[address] this is listed appears to be indicating the patient is positive for Covid-19. Please confirm a positive or negative Covid-19 status. Patient has negative lab result on this visit. Thank you, DONNA Mcmahon RHIA MTDD
== END 2020-03-22 15:01 | disposition home or self-care (01) ==
LOC: EC 11:35 → 1SOBS 13:56
PROVIDERS: ADMIT Internal Medicine Geriatric Medicine; ATTEND Internal Medicine Geriatric Medicine
DX: R07.89 Other chest pain (principal); R11.0 Nausea; R61 Generalized hyperhidrosis; F03.90 Unspecified dementia, unspecified severity, without behavioral disturbance, psychotic disturbance, mood disturbance, and anxiety; I48.0 Paroxysmal atrial fibrillation; M06.9 Rheumatoid arthritis, unspecified; I35.1 Nonrheumatic aortic (valve) insufficiency; R41.82 Altered mental status, unspecified; D64.9 Anemia, unspecified; I12.9 Hypertensive chronic kidney disease with stage 1 through stage 4 chronic kidney disease, or unspecified chronic kidney disease; N18.3 Chronic kidney disease, stage 3 (moderate); K21.9 Gastro-esophageal reflux disease without esophagitis; M54.2 Cervicalgia; M10.9 Gout, unspecified; R41.3 Other amnesia; E66.9 Obesity, unspecified; Z68.26 Body mass index [BMI] 26.0-26.9, adult; N40.0 Benign prostatic hyperplasia without lower urinary tract symptoms; Z20.828 Contact with and (suspected) exposure to other viral communicable diseases; Z86.73 Personal history of transient ischemic attack (TIA), and cerebral infarction without residual deficits; Z87.891 Personal history of nicotine dependence; Z87.19 Personal history of other diseases of the digestive system; Z79.899 Other long term (current) drug therapy; Z79.01 Long term (current) use of anticoagulants; Z88.0 Allergy status to penicillin; Z82.49 Family history of ischemic heart disease and other diseases of the circulatory system; Z82.3 Family history of stroke; Z83.3 Family history of diabetes mellitus; Z80.9 Family history of malignant neoplasm, unspecified
CPT/HCPCS: 99285; 36415; 93005 ×2; 93306; 83880; 80061; 80053; 83735; 84484; 85025; 85610; 85730; 71046; G0378 ×2; U0003; S0138; Q9950